=== PATIENT | male | born 1980 | race Caucasian/White ===

== ENCOUNTER → 2017-12-04 | Emergency (ER) | payer OTHER ==
[~2017-12-04] VITALS: Ht 177.8 cm; Wt 77.1 kg
== END | disposition home or self-care (01) ==
LOC: ER 16:54
DX: S93.692A Other sprain of left foot, initial encounter (principal); X50.1XXA Overexertion from prolonged static or awkward postures, initial encounter; Y93.01 Activity, walking, marching and hiking; Y92.830 Public park as the place of occurrence of the external cause; Y99.8 Other external cause status

== ENCOUNTER → 2018-12-03 | Emergency (ER) | payer OTHER ==
[~2018-12-03] VITALS: Ht 177.8 cm; Wt 81.6 kg
== END | disposition home or self-care (01) ==
LOC: ER 19:48
DX: K52.9 Noninfective gastroenteritis and colitis, unspecified (principal); E86.0 Dehydration

== ENCOUNTER 2024-05-07 12:15 | Inpatient (IN) | payer OTHER ==
[~2024-05-07] VITALS: Ht 167.6 cm; Wt 77.1 kg
[2024-05-07] MEDS ORDERED: COZAAR50 MG (13:14)
--- NOTE | 2024-05-07 13:14 | NUR ---
SE RECIBE PTE ALERTA YORIENTADO X3 EL MISMO REFIERE HIVES POR TODO EL CUERPO DESDE LA MANANA DE [place]. REFIERE QUE SI DOCTOR LE DIJO QUE EL MEDICAMENTO QUE LE RECETO (DOXYCYCLINE) CONTIENE UN INGREDIENTE EL CUAL LE [place]. REFIERE TENER LOS HIVES POR TODO EL CUERPO.
[2024-05-07] MEDS ORDERED: FAMOTIDINE/PF 20 MG/2 ML VIAL IV PUSH ONE (14:00)
[2024-05-07] MEDS ORDERED: DEXAMETHASONE SODIUM PHOSPHATE 4 MG/ML VIAL IM ONE (14:00)
[2024-05-07] MEDS ORDERED: KETOROLAC TROMETHAMINE 30 MG VIAL IV ONE (14:00)
[2024-05-07] MEDS ORDERED: METHYLPREDNISOLONE SOD SUCC 125 MG VIAL IV ONE (14:00)
[2024-05-07] MEDS ORDERED: 0.9 % SODIUM CHLORIDE 1,000 ML IV ONE (14:00)
[2024-05-07] MEDS ORDERED: DIPHENHYDRAMINE HCL 50 MG/ML VIAL 1ML IV ONE (14:00)
[2024-05-07] MEDS ORDERED: FAMOTIDINE/PF 20 MG/2 ML VIAL ONE (14:17)
[2024-05-07] MEDS ORDERED: DIPHENHYDRAMINE HCL 50 MG/ML VIAL 1ML ONE (14:17)
[2024-05-07] MEDS ORDERED: METHYLPREDNISOLONE SOD SUCC 125 MG VIAL ONE (14:17)
--- NOTE | 2024-05-07 14:18 | NUR ---
SE ORIENTA A PACIENTE SOBRE ORDENES MEDICAS. SE COLECTAN MUESTRAS DE LABORATORIO BAJO MEDIDAS ASEPTICAS. SE CANALIZA Y SE ADMINISTRAN MEDICAMENTOS STEFAN ORDEN MEDICA. SE NOTIFICA X-RAY.
[2024-05-07 14:47] LABS: HEMATOCRIT 44.5 % (39.0-48.0); HEMOGLOBIN 15.5 g/dL (13-16.00); MEAN CELL VOLUME 89.3 fL (80.0-100.00); MEAN CORPUSCULAR HEMOGLOBIN 31.1 pg (27.00-32.0); MEAN CORPUSCULAR HGB CONC 34.8 g/dl (32.0-36.0); PLATELET COUNT 225 K/uL (150-450); RED BLOOD COUNT 4.98 M/uL (4.00-6.00); RED CELL DISTRIBUTION WIDTH 12.7 % (11.5-14.5)
[2024-05-07 15:09] LABS: ALBUMIN 4.1 gm/dL (3.4-5.0); BILIRUBIN TOTAL 0.36 mg/dL (0.3-1.2); CALCIUM 9.2 mg/dL (8.5-10.1); CREATININE SERUM 1.11 mg/dL (0.70-1.30); GFR 72.3; GLOBULINA 3.7 G/DL (2.4-3.5); POTASSIUM 3.58 mEq/L (3.5-5.1); TOTAL PROTEIN 7.8 gm/dL (6.4-8.2)
[2024-05-07 15:22] LABS: C-REACTIVE PROTEIN 0.62 MG/DL (0.00-0.29)
[2024-05-07 17:30] LABS: ERYTHROCYTE SEDIMENTATION RATE 11 mm/hr
[2024-05-07] MEDS ORDERED: 0.9 % SODIUM CHLORIDE 1,000 ML IV SCH (19:30)
[2024-05-07] MEDS ORDERED: LOSARTAN POTASSIUM 50 MG TABLET PO SCH (19:38)
[2024-05-07] MEDS ORDERED: CEFTRIAXONE SODIUM 2,000 MG in 0.9 % SODIUM CHLORIDE 100 ML IV SCH (19:40)
[2024-05-07] MEDS ORDERED: ACETAMINOPHEN 500 MG GEL..CAP PO PRN (19:45)
[2024-05-07] MEDS ORDERED: DIPHENHYDRAMINE HCL 50 MG/ML VIAL 1ML IV PRN (19:45)
[2024-05-07] MEDS ORDERED: CEFTRIAXONE SODIUM 2,000 MG VIAL ONE (19:57)
[2024-05-07 20:35] LABS: INR 0.99; PARTIAL THROMBOPLASTIN TIME 28.8 SECONDS (22.0-34.0); PROTHROMBIN TIME 10.8 SECONDS (9.0-11.5)
[2024-05-07 20:56] LABS: URINE APPEARANCE Clear; URINE BILIRRUBIN Negative (NEGATIVE); URINE BLOOD Small; URINE COLOR Yellow; URINE KETONE Trace (NEGATIVE); URINE LEUKOCYTE Negative; URINE NITRATE Negative; URINE PROTEIN Negative (NEGATIVE); URINE UROBILINOGEN 0.2 E.U./dl
[2024-05-07 21:00] LABS: URINE BACTERIA 7.5 uL (0.0-1933); URINE RBC 7.4 uL (0.0-20.8); URINE WBC 2.1 uL (0.0-23.2)
[2024-05-07 21:04] LABS: URINE GLUCOSE >=1000 MG/DL (NEGATIVE)
[2024-05-07 21:10] VITALS: BP 117/72; O2SAT 99
[2024-05-08 02:07] VITALS: BP 103/65; O2SAT 95
[2024-05-08] MEDS ORDERED: FAMOTIDINE/PF 20 MG in 0.9 % SODIUM CHLORIDE 8 ML IV PUSH SCH ×2 (09:00→21:00)
[2024-05-08 10:05] VITALS: BP 107/61
[2024-05-08] MEDS ORDERED: METHYLPREDNISOLONE SOD SUCC 40 MG VIAL IV SCH (17:00)
[2024-05-08] MEDS ORDERED: DIPHENHYDRAMINE HCL 50 MG/ML VIAL 1ML IV SCH (17:00)
[2024-05-08] MEDS ORDERED: METHYLPREDNISOLONE SOD SUCC 125 MG VIAL IV STA (17:29)
[2024-05-08 18:43] VITALS: BP 109/53
[2024-05-09] MEDS ORDERED: METHYLPREDNISOLONE SOD SUCC 40 MG VIAL IV SCH (01:00)
[2024-05-09 02:05] VITALS: BP 93/54
[2024-05-09 09:00] VITALS: BP 136/71; O2SAT 100
[2024-05-09] MEDS ORDERED: VANCOMYCIN HCL 5 MG/ML REDILUIDO IV SCH (09:00)
[2024-05-09] MEDS ORDERED: VANCOMYCIN HCL 1,250 MG in 0.9 % SODIUM CHLORIDE 250 ML IV SCH (09:00)
[2024-05-09 13:53] LABS: HEMATOCRIT 39.6 % (39.0-48.0); HEMOGLOBIN 13.5 g/dL (13-16.00); MEAN CELL VOLUME 89.1 fL (80.0-100.00); MEAN CORPUSCULAR HEMOGLOBIN 30.3 pg (27.00-32.0); PLATELET COUNT 201 K/uL (150-450); RED BLOOD COUNT 4.44 M/uL (4.00-6.00); RED CELL DISTRIBUTION WIDTH 12.8 % (11.5-14.5)
[2024-05-09 15:04] LABS: ALBUMIN 3.5 gm/dL (3.4-5.0); BILIRUBIN TOTAL 0.3 mg/dL (0.3-1.2); CALCIUM 8.6 mg/dL (8.5-10.1); CREATININE SERUM 0.74 mg/dL (0.70-1.30); GFR 115.44; GLOBULINA 2.8 G/DL (2.4-3.5); POTASSIUM 3.99 mEq/L (3.5-5.1); TOTAL PROTEIN 6.3 gm/dL (6.4-8.2)
[2024-05-09 19:20] VITALS: BP 130/81
[2024-05-09] MEDS ORDERED: FAMOTIDINE/PF 20 MG/2 ML VIAL ONE (19:45)
[2024-05-10 03:17] VITALS: BP 120/71; O2SAT 97
[2024-05-10] MEDS ORDERED: FAMOTIDINE/PF 20 MG/2 ML VIAL ONE ×2 (08:35→19:58)
[2024-05-10 09:15] VITALS: BP 134/88
[2024-05-10 18:01] VITALS: BP 152/90
[2024-05-11 01:36] VITALS: BP 136/78; O2SAT 98
[2024-05-11 09:16] VITALS: BP 136/90
[2024-05-11 09:33] LABS: ALBUMIN 3.3 gm/dL (3.4-5.0); BILIRUBIN TOTAL 0.27 mg/dL (0.3-1.2); CALCIUM 8.4 mg/dL (8.5-10.1); CREATININE SERUM 0.88 mg/dL (0.70-1.30); GFR 94.52; GLOBULINA 2.8 G/DL (2.4-3.5); POTASSIUM 3.98 mEq/L (3.5-5.1); TOTAL PROTEIN 6.1 gm/dL (6.4-8.2)
[2024-05-11 17:37] VITALS: BP 135/84
[2024-05-11] MEDS ORDERED: METHYLPREDNISOLONE SOD SUCC 40 MG VIAL IV SCH (21:00)
[2024-05-12 02:26] VITALS: BP 110/70; O2SAT 97
[2024-05-12] MEDS ORDERED: FAMOTIDINE/PF 20 MG/2 ML VIAL ONE (08:18)
[2024-05-12 09:16] VITALS: BP 141/87; O2SAT 98
== END 2024-05-12 14:40 | disposition home or self-care (01) | DRG 603 ==
LOC: ER 12:16 → SEC-K 19:46 → MEDJ 19:46
PROVIDERS: General Practice; Internal Medicine Infectious Disease; ADMIT Internal Medicine; ATTEND Internal Medicine
PROC: B54NZZZ Ultrasonography of Left Upper Extremity Veins (ICD-10-PCS; principal; 2024-05-07)
PROC: BP4HZZZ Ultrasonography of Left Elbow (ICD-10-PCS; 2024-05-09)
DX: L03.114 Cellulitis of left upper limb (principal); M70.22 Olecranon bursitis, left elbow; T36.1X5A Adverse effect of cephalosporins and other beta-lactam antibiotics, initial encounter; I10 Essential (primary) hypertension